=== PATIENT | male | born 1965 | race Caucasian/White ===

== ENCOUNTER 2020-01-05 09:41 | Day surgery (SDC) | payer MEDICARE, MEDICAID ==
[2020-01-05] VITALS (7 sets, daily range): BP systolic 121–133; BP diastolic 57–88
[~2020-01-05] VITALS: Ht 182.9 cm; Wt 101.9 kg
[~2020-01-05 09:41] MED LIST: ATOR-2 PO; BREX4TAB PO; ERGO2000 PO; GABA600T13 PO; LIDOcaine 0.5% (5mg/ml) 50ml vial ONE; LISI-642 PO; OMEP20TA23 PO; PRAZ2CAP2 PO; ROPI1TAB6 PO; SERT100T PO; TRAZ-256 PO; ZIPR80CA2 PO
[2020-01-05] MEDS ORDERED: famotidine 20mg tablet PO ONE (10:00)
[2020-01-05] MEDS ORDERED: ringers solution, lacted 1,000 ML IV SCH ×3 (10:00→13:43)
[2020-01-05] MEDS ORDERED: morphine 4 MG/ML inj SYRINge IV PRN ×2 (11:20→13:45)
[2020-01-05] MEDS ORDERED: morphine 2 MG/ML inj. syringe IV PRN ×2 (11:20→13:45)
[2020-01-05] MEDS ORDERED: fentaNYL/PF 50MCG/1 ML 2ML syringe IV PRN ×2 (11:20)
[2020-01-05] MEDS ORDERED: labetalol 20mg/4ml (5mg/ml) syringe IV PRN (11:20)
[2020-01-05] MEDS ORDERED: ondansetron/PF 4mg/2ml inj IV PRN (11:20)
[2020-01-05] MEDS ORDERED: hydrALAZINE 20mg/ml inj. IV PRN (11:20)
[2020-01-05 11:37] LABS: BASOPHILS % (AUTO) 0.5 % (0-1); EOSINOPHILS # (AUTO) 0.2 X10'3 (0-0.9); EOSINOPHILS % (AUTO) 3.5 % (0-6); LYMPHOCYTES # (AUTO) 0.4 X10'3 (1.1-4.8); LYMPHOCYTES % (AUTO) 7.9 % (21-51); MEAN CORPUSCULAR HEMOGLOBIN 28.5 PG (27.0-31.0); MEAN CORPUSCULAR HGB CONC 34.4 g/dL (33.0-36.5); MEAN CORPUSCULAR VOLUME 82.7 FL (78-98); MEAN PLATELET VOLUME 7.5 FL (7.4-10.4); MONOCYTES # (AUTO) 0.4 X10'3 (0-0.9); MONOCYTES % (AUTO) 7.4 % (2-12); NEUTROPHILS # (AUTO) 4.5 X10'3 (1.8-7.7); NEUTROPHILS % (AUTO) 80.7 % (42-75); PRE OP HEMATOCRIT 40.8 % (42.0-52.0); PRE OP PLATELET COUNT 157 X10'3 (140-440); RED BLOOD COUNT 4.93 X10'6 (4.70-6.10); RED CELL DISTRIBUTION WIDTH 15.3 % (11.5-14.5)
[2020-01-05 11:49] LABS: ALBUMIN 3.7 G/DL (3.4-5.0); ALBUMIN/GLOBULIN RATIO 0.8 (1.1-1.5); ALKALINE PHOSPHATASE 130 IU/L (46-116); BLOOD UREA NITROGEN 24 MG/DL (7-18); CALCIUM 9.7 MG/DL (8.5-10.1); CHLORIDE 106 MMOL/L (99-107); PRE OP ALT 23 U/L (30-65); PRE OP ANION GAP 10 (8-16); PRE OP AST 19 U/L (10-37); PRE OP BILIRUB, TOTAL 0.5 MG/DL (0.0-1.0); PRE OP GLUCOSE 108 MG/DL (70-104); PRE OP POTASSIUM 4.3 MMOL/L (3.4-5.1); PRE OP SODIUM 143 MMOL/L (135-145); TOTAL CARBON DIOXIDE 27.5 MMOL/L (24-32); TOTAL PROTEIN 8.2 G/DL (6.4-8.2); eGFR 63 ML/MIN
[2020-01-05] MEDS ORDERED: ceFAZolin 1,000 MG in NS 100ML IVPB IV ONE (12:00)
[2020-01-05] MEDS ORDERED: LIDOcaine 0.5% (5mg/ml) 50ml vial ONE (12:03)
[2020-01-05] MEDS ORDERED: fentaNYL/PF 50MCG/1 ML 2ML syringe ONE ×2 (12:06→14:16)
[2020-01-05] MEDS ORDERED: meperidine/PF 25mg/ml syringe IV PRN (13:45)
[2020-01-05] MEDS ORDERED: HYDROmorphone inj. 0.5 MG/0.5 ML DISP.SYRIN IV PRN ×2 (13:45)
[2020-01-05] MEDS ORDERED: proCHLORperazine 10 MG/2 ml inj IV PRN (13:45)
[2020-01-05] MEDS ORDERED: ePHEDrine 50MG/ML INJ. ONE (14:08)
[2020-01-05] MEDS ORDERED: cefazolin 2gm/NS 100ml IVPB IV ONE (14:08)
[2020-01-05] MEDS ORDERED: dexamethasone sod phosphate 10mg/ml inj ONE (14:08)
[2020-01-05] MEDS ORDERED: sevoflurane 250ml liquid IH ONE (14:08)
[2020-01-05] MEDS ORDERED: midazolam 2 mg/2 ml injection ONE (14:16)
[2020-01-05] MEDS ORDERED: LIDOcaine 2% (20mg/ml) 5ml vial ONE (14:28)
[2020-01-05] MEDS ORDERED: propofol inj 20 ML IV ONE ×2 (14:28)
[2020-01-05] MEDS ORDERED: BUPIVAcaine/PF 2.5 mg/ml (0.25%) 30ml vial ONE (14:34)
[2020-01-05] MEDS ORDERED: famotidine/PF 10 mg/ml inj IV ONE (14:34)
--- NOTE | 2020-01-05 15:06 | NUR ---
Received from OR via [facility] , accompanied by Anesthesiologist SHALOM and report given by Anesthesiolgist. LEFT UE SPLINT ON AND INTACT AT THIS TIME. NO DRAINAGE PRESENT. + CAP REFILL AND MOVEMENT. 10L MASK ON WITH 100% SATURATIONS. Addendum: 01/05/20 at 1513 by Matthew Stein RN, RN Amended: Links added.
--- NOTE | 2020-01-05 15:56 | NUR ---
ALL DC CRITERIA HAS BEEN MET. IV TAKEN OUT WITHOUT COMPLICATIONS. ALL INSTRUCTIONS COVERED AND ALL QUESTIONS ANSWERED. DRESSINGS CDI. OUT VIA WHEELCHAIR TO PERSONAL MENTAL HEALTH WHERE PATIENT WAS TO BE CARED FOR BY STAFF. INSTRUCTIONS TO ELEVATE ARM ON PILLOWS. STAFF AWARE OF DC PAPERWORK IN PATIENTS BAG. Addendum: 01/05/20 at 1604 by Matthew Stein RN, RN Amended: Links added.
[2020-01-09] MEDS ORDERED: OXCA300T16 PO (09:22)
[2020-01-09] MEDS ORDERED: GABA600T13 PO (09:22)
[2020-01-09] MEDS ORDERED: PANT40TA4 PO (09:22)
[2020-01-09] MEDS ORDERED: PRAZ5CAP2 PO (09:22)
[2020-01-09] MEDS ORDERED: BREX4TAB PO (09:22)
[2020-01-09] MEDS ORDERED: MIRT-67 PO (09:22)
[2020-01-09] MEDS ORDERED: HYDR-3686 PO (09:22)
[2020-01-09] MEDS ORDERED: OXYC-145 PO (09:22)
[2020-01-09] MEDS ORDERED: ROPI1TAB6 PO (09:22)
[2020-01-09] MEDS ORDERED: ATOR20TA66 PO (09:22)
== END 2020-01-05 15:56 | disposition still patient (30) ==
LOC: PAS 09:41
PROVIDERS: ATTEND Orthopaedic Surgery
DX: S63.287A Dislocation of proximal interphalangeal joint of left little finger, initial encounter (principal); I10 Essential (primary) hypertension; G89.29 Other chronic pain; F19.10 Other psychoactive substance abuse, uncomplicated; Z98.890 Other specified postprocedural states; Z79.899 Other long term (current) drug therapy; X58.XXXA Exposure to other specified factors, initial encounter; Y93.89 Activity, other specified; Y92.89 Other specified places as the place of occurrence of the external cause; Y99.8 Other external cause status
CPT/HCPCS: 26776; 36415; 73140; 76000; 80053; 85025; 93005; A6222; C1713; J0690; J1100; J1170; J2001; J2250; J2704; J3010; J3490; A4618; A6449; A7000; J7120